=== PATIENT | female | born 1995 | race Caucasian/White ===

== ENCOUNTER 2020-01-31 18:58 | Emergency (ER) | payer BC, SELFPAY ==
[2020-01-31 19:01] VITALS: BP 128/78; PULSE 76; RESP 17; TEMP 36.8; O2SAT 99
[2020-01-31 20:23] VITALS: BP 120/69; PULSE 73
[2020-01-31 20:24] VITALS: BP 122/74; PULSE 71
[2020-01-31 20:25] VITALS: BP 118/71; PULSE 80
--- NOTE | 2020-01-31 20:31 | ED.PREGNANCY ---
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 Also reports some spotting. Reports history of miscarriages which prompted her to be seen. Denies fever, vomiting, dysuria or hematuria. Related Data Home Medications Medication Instructions Recorded Confirmed PNV cmb#95-ferrous fumarate-FA 1 tablet PO 01/31/20 [] Allergies Allergy/AdvReac Type Severity Reaction Status Date / Time pineapple Allergy Mild Unknown Verified 01/31/20 19:13 Review of Systems Review of Systems: Narrative: CONSTITUTIONAL: Denies fever GASTROINTESTINAL: Reports pelvic pain. Denies nausea, vomiting GENITOURINARY: Denies dysuria or hematuria. All systems reviewed & are unremarkable except as noted in HPI and below PMFSH Past Medical History Medical History (Updated 01/31/20 @ 22:29 by Macy Cruz PA-C) No active medical problems Surgical History Surgical History (Updated 01/31/20 @ 20:35 by Macy Cruz PA-C) History of History of tonsillectomy Social History Social History Gender identity (if verbalized by the patient): Female Exam Narrative: Exam Narrative: GENERAL: Well-appearing, well-nourished, and in no acute distress. HEAD: Normocephalic, atraumatic. EYES: EOMI. CHEST: Clear to auscultation. No respiratory distress. No wheezes rales or rhonchi HEART: Regular rate and rhythm. No murmur heard. Normal peripheral pulses. ABDOMEN: Soft, nontender, nondistended, normal active bowel sounds. EXTREMITIES: Normal range of motion. No edema. SKIN: Warm, dry, no rash. NEURO: No focal deficits. Alert and oriented x3. PSYCH: Normal mood and affect PELVIC: Normal external genitalia. Normal appearing cervix. No blood noted in the vaginal vault. Course Consultations Consultation #1: Spoke with Dr. Watt about patient and workup. Patient is to follow up in clinic Date: 01/31/20 Time: 22:25 Vital Signs Vital signs: Vital Signs Temperature 98.3 F 01/31/20 19:01 Pulse Rate 76 01/31/20 19:01 Respiratory Rate 17 01/31/20 19:01 Blood Pressure 128/78 01/31/20 19:01 Pulse Oximetry 99 01/31/20 19:01 Temperature 98.3 F 01/31/20 19:01 Pulse Rate 80 01/31/20 20:25 Respiratory Rate 17 01/31/20 19:01 Blood Pressure 118/71 01/31/20 20:25 Pulse Oximetry 99 01/31/20 19:01 Procedures Other Procedure Procedure 1: Other Procedure: Bedside US performed by myself with pole with positive cardiac motion MDM - OB/Uterine Contractions MDM Narrative Medical decision making narrative: Patient presents to the emergency department for pelvic cramping and spotting that started this afternoon. Patient is 10 weeks . Reports she has had 2 normal ultrasounds this . CBC with mild leukocytosis to 12.8. Metabolic panel without concerning findings. UA without evidence of infection. I did perform a bedside ultrasound with positive pole with cardiac motion. Spoke with Dr. Watt, on-call for Dr. Ocampo about work-up. Patient is to follow-up in clinic. Patient is stable and felt appropriate for further outpatient evaluation. She was given warnings to return to the ER Lab Data Attestation: I reviewed the patient's lab results. Result diagrams: 01/31/20 20:25 01/31/20 20:25 Labs: Lab Results 01/31/20 01/31/20 01/31/20 Range/Units 20:25 20:25 20:25 WBC 12.8 H (4.5-10.0) K/mm3 RBC 4.37 (4.2-5.4) M/mm3 Hgb 12.9 (12.0-15.0) g/dL Hct 38.9 (37.0-47.0) % MCV 89.0 (80-100) fl MCH 29.5 (26-34) pg MCHC 33.2 (32-36) g/dl RDW 12.7 (11.5-14.5) % Plt Count 391 H (150-375) k/mm3 MPV 9.1 (7.4-10.
[2020-01-31 20:34] LABS: Basophils Percent Auto 0.3 % (0.2-1.2); Eosinophils Absolute Auto 0.2 K/mm3 (0-0.3); Eosinophils Percent Auto 1.8 % (0-4.4); Hematocrit 38.9 % (37.0-47.0); Hemoglobin 12.9 g/dL (12.0-15.0); Immature Granulocyte Absolute 0.05 K/mm3 (0.00-0.031); Immature Granulocyte Percent A 0.4 % (0-0.5); Lymphocytes Percent Auto 25.8 % (18.3-44.2); Mean Corpuscular HGB Conc 33.2 g/dl (32-36); Mean Corpuscular Hemoglobin 29.5 pg (26-34); Mean Platelet Volume 9.1 fl (7.4-10.4); Monocytes Absolute Auto 0.8 K/mm3 (0.1-0.6); Monocytes Percent Auto 6.3 % (2.6-8.5); Neutrophils Absolute Auto 8.4 K/mm3 (1.3-6.7); Neutrophils Percent Auto 65.4 % (45.5-73.1); Platelet Count Result 391 k/mm3 (150-375); Red Blood Count 4.37 M/mm3 (4.2-5.4); Red Cell Distribution Width 12.7 % (11.5-14.5); White Blood Count 12.8 K/mm3 (4.5-10.0)
[2020-01-31 20:39] LABS: Add Urine Microscopic? YES; Appearance Urine Clear (Clear); Bacteria Urine Trace /hpf; Bilirubin Urine Negative (Negative); Blood Urine 1+ (Negative); Color Urine Straw (Yellow); Glucose Urine UA Negative (Negative); Ketones Urine Negative (Negative); Leukocyte Esterase Ur Negative LEU/UL (Negative); Mucus Urine Rare /lpf; Nitrate Urine Negative (Negative); Protein Urine Negative (Negative); Specific Grav Ur 1.014 (1.001-1.035); Squamous Epithelial Cell Urine Occasional /hpf (Few); Urobilinogen Urine Negative mg/dL (<2.0); WBC Urine 0-3 /hpf
[2020-01-31 20:44] LABS: Prothrombin Time 12.9 Seconds (11.1-14.7)
[2020-01-31 20:45] LABS: Blood Urea Nitrogen 10 mg/dL (7-17); Calcium 8.8 mg/dL (8.4-10.2); Carbon Dioxide 24 mmol/L (22-30); Chloride 101 mmol/L (98-107); Estimated CRCL calculation 176 ml/min; Estimated Glomerular Filt Rate > 60; Glucose 84 mg/dL (65-105); Partial Thromboplastin Time 26.5 SECONDS (22.3-36.8); Potassium 3.8 mmol/L (3.4-5.0); Sodium 134 mmol/L (137-145)
[2020-01-31 22:47] VITALS: BP 114/71; PULSE 86; RESP 20; O2SAT 100
== END 2020-01-31 22:48 | disposition home or self-care (01) ==
PROVIDERS: Physician Assistant; Emergency Provider Emergency Medicine
DX: O26.851 Spotting complicating pregnancy, first trimester (principal); Z3A.10 10 weeks gestation of pregnancy
CPT/HCPCS: 36415; 80048; 81001; 81025; 84702; 85025; 85610; 85730; 96365; 99284; J0131

== ENCOUNTER 2020-02-01 11:11 | Outpatient (RCR) | payer BC, SELFPAY | END 2020-05-01 23:59 | disposition home or self-care (01) | LOC: ANHLAB 11:11 | PROVIDERS: Visit Provider Obstetrics & Gynecology | DX: Z29.13 Encounter for prophylactic Rho(D) immune globulin (principal); O36.0130 Maternal care for anti-D [Rh] antibodies, third trimester, not applicable or unspecified; Z3A.00 Weeks of gestation of pregnancy not specified | CPT/HCPCS: 36415; 85461 ==

== ENCOUNTER 2020-03-28 23:49 | Emergency (ER) | payer BC, SELFPAY ==
[2020-03-28 23:55] VITALS: BP 112/58; PULSE 72; RESP 17; TEMP 35.8; O2SAT 100
--- NOTE | 2020-03-29 02:17 | ED.GENADULT ---
HPI - General Adult General Chief complaint: Unspecified Stated complaint: 18 WKS PREG, LEGS LOOK BRUISED Time Seen by Provider: 03/29/20 02:09 History of Present Illness HPI narrative: She noted purpulish discoloration of the bilateral buttocks and thighs this evening. Right more than left. Additionally believes that her leg veins are darker and more prominent than usual. She denies any pain or swelling. No trauma. No CP, SOB, light headedness, weakness. She is 18 weeks . Related Data Home Medications Medication Instructions Recorded Confirmed Flinstone Gummies 2 cap/kg PO DAILY 03/29/20 Allergies Allergy/AdvReac Type Severity Reaction Status Date / Time pineapple Allergy Mild Unknown Verified 03/28/20 23:53 Review of Systems Review of Systems: All systems reviewed & are unremarkable except as noted in HPI and below PMFSH Past Medical History Medical History No active medical problems Surgical History Surgical History History of History of tonsillectomy Social History Social History Gender identity (if verbalized by the patient): Female Exam Const: General: healthy appearing, no acute distress and alert Orientation/consciousness: patient oriented x3 HENMT: Head: normal to inspection Resp: Effort & Inspection: normal respiratory effort Auscultation: clear to auscultation bilaterally Cardio: Rate: regular rate Rhythm: regular rhythm GI: GI Palp: No Tenderness to palpation present (GI) Other: gravid Skin: Other: Darkening of the skin othe the buttocks and proximal thighs. Appears similar to dependent bruising. No tenderness. Dark superfical veins noted, not firm or tender. Neuro: General: patient oriented x3, moves all extremities, no focal motor deficits and CN's II-XI intact bilaterally Speech: normal speech Gait exam (Neuro): Normal gait present Extrem: General: no edema Other: No tenderness Psych: Appearance: grossly normal and well kempt Mental Status: mental status grossly normal Affect: normal affect Course Vital Signs Vital signs: Vital Signs Temperature 35.8 C L 03/28/20 23:55 Pulse Rate 72 03/28/20 23:55 Respiratory Rate 17 03/28/20 23:55 Blood Pressure 112/58 L 03/28/20 23:55 Pulse Oximetry 100 03/28/20 23:55 Temperature 35.8 C L 03/28/20 23:55 Pulse Rate 74 03/29/20 04:45 Respiratory Rate 16 03/29/20 04:45 Blood Pressure 115/63 03/29/20 04:45 Pulse Oximetry 100 03/29/20 04:45 Procedures Other Procedure Procedure 1: Other Procedure: Bedside Ultrasound Bilateral femoral and popliteal veins fully compressible throughout visualized course. No DVT IUP seen. Grossly normal for reported age. Reassuring movement FHR 150 Medical Decision Making MDM Narrative Medical decision making narrative: Exam appears similar to bruising. No DVT on US. No worrisome symptoms. Case discussed with her OB. They will see her in clinic tomorrow. Medical Records Medical records reviewed: Yes I reviewed the patient's medical records. Vital Signs Vital Signs: Vital Signs Temperature 35.8 C L 03/28/20 23:55 Pulse Rate 72 03/28/20 23:55 Respiratory Rate 17 03/28/20 23:55 Blood Pressure 112/58 L 03/28/20 23:55 Pulse Oximetry 100 03/28/20 23:55 Temperature 35.8 C L 03/28/20 23:55 Pulse Rate 74 03/29/20 04:45 Respiratory Rate 16 03/29/20 04:45 Blood Pressure 115/63 03/29/20 04:45 Pulse Oximetry 100 03/29/20 04:45 Discharge Plan Discharge Clinical Impression: Discoloration of skin Patient Disposition: Home, Self-Care Condition: Stable Prescriptions: No Action Flinstone Gummies 2 cap/kg PO DAILY RF: 0 Follow-up/Referrals: Lakhwinder Ocampo MD [Primary Care Provider] - 03/29/20 Discharge Date/
[2020-03-29 04:45] VITALS: BP 115/63; PULSE 74; RESP 16; O2SAT 100
== END 2020-03-29 04:45 | disposition home or self-care (01) ==
PROVIDERS: Emergency Provider Emergency Medicine; PCP Obstetrics & Gynecology
DX: O26.892 Other specified pregnancy related conditions, second trimester (principal); R23.8 Other skin changes; Z3A.18 18 weeks gestation of pregnancy
CPT/HCPCS: 99281

== ENCOUNTER 2020-07-04 17:23 | Outpatient (CLI) | payer BC, SELFPAY ==
--- NOTE | ~2020-07-04 | US_ITS ---
EXAMINATION: US venous doppler [facility] DATE: 07/04/2020 17:47 INDICATION: Left lower extremity pain TECHNIQUE: Tolentino scale images with and without compression and Doppler images of the left upper extrem ity veins were obtained. COMPARISON: None. FINDINGS: The left internal jugular vein, subclavian vein, axillary vein, brachial veins, basilic vein, cephali c vein, radial vein, and ulnar vein are patent.] IMPRESSION: 1. Patent left upper extremity veins. No evidence of deep venous thrombosis. Reviewed, dictated and finalized at location A. COVERING TEXTURER
== END 2020-07-04 17:24 | disposition home or self-care (01) ==
PROVIDERS: PCP Obstetrics & Gynecology; Visit Provider Advanced Practice Midwife
DX: M79.605 Pain in left leg (principal)
CPT/HCPCS: 93971

== ENCOUNTER 2020-08-23 10:41 | Outpatient (CLI) | payer BC, SELFPAY ==
[2020-08-23 11:07] LABS: Hematocrit 35.3 % (37.0-47.0); Hemoglobin 10.9 g/dL (12.0-15.0); Mean Corpuscular HGB Conc 30.9 g/dl (32-36); Mean Corpuscular Hemoglobin 26.8 pg (26-34); Mean Corpuscular Volume 86.9 fl (80-100); Mean Platelet Volume 9.7 fl (7.4-10.4); Platelet Count Result 290 k/mm3 (150-375); Red Blood Count 4.06 M/mm3 (4.2-5.4); Red Cell Distribution Width 14.2 % (11.5-14.5)
[2020-08-24 12:09] LABS: Rapid Plasma Reagin Non-Reactive (NonReactive)
== END 2020-08-23 10:42 | disposition home or self-care (01) ==
LOC: ANHLAB 10:43
PROVIDERS: Visit Provider Obstetrics & Gynecology
DX: Z34.93 Encounter for supervision of normal pregnancy, unspecified, third trimester (principal); Z3A.00 Weeks of gestation of pregnancy not specified
CPT/HCPCS: 36415; 85027; 86592; 86850; 86900; 86901

== ENCOUNTER 2020-08-24 07:07 | Inpatient (IN) | payer BC, SELFPAY ==
[2020-08-24] VITALS (61 sets, daily range): BP systolic 103–137; BP diastolic 51–99; PULSE 64–141; RESP 14–18; TEMP 36.2–37.2; O2SAT 95–100; BMI 38.0
--- NOTE | 2020-08-24 07:25 | WPDHPUPDATE1 ---
History and Physical Update Update Date/Time: 08/24/20 07:25 History and Physical has been reviewed, including an updated exam of the patient. There are NO changes in the patient's condition. Risks, benefits, and alternatives have been discussed and questions answered. Patient agrees to proceed with procedure.
--- NOTE | 2020-08-24 07:25 | PM.IMHP ---
H&P: HPI History of Present Illness Date/Time: 08/24/20 07:25 Chief Complaint: term gest. Narrative: Dominique Goode is a 25 year old female Multipara at term with previous . We have agreed to proceed with repeat delivery. She understands the risk. She denies any nausea, vomiting, fever, chills. She denies any contractions, loss of fluid, vaginal bleeding. She denies any headache or blurry vision. She denies any chest pain or shortness of breath. Review of Systems Constitutional: Constitutional: Reports no additional constitutional complaints, Denies fatigue, Denies headache(s), Denies lethargy and Denies weakness Eyes: Eyes: Reports no additional eye complaints, Denies blurry vision and Denies photophobia ENT: Reports as per HPI, Denies headache(s) and Denies neck pain Cardiovascular: Cardiovascular: Denies chest pain, Denies diaphoresis, Denies leg edema, Denies palpitations and Denies dyspnea Respiratory: Respiratory: Denies hemoptysis, Denies dyspnea and Denies wheezing Gastrointestinal: Gastrointestinal: Denies abdominal pain, Denies melena, Denies bloating, Denies hematochezia, Denies nausea and Denies vomiting Genitourinary: Genitourinary: Reports no additional female genitourinary complaints Musculoskeletal: Musculoskeletal: Denies joint swelling, Denies neck pain, Denies numbness and Denies stiffness Neurologic: Denies Abnormal speech present, Denies confusion, Denies headache(s), Denies numbness and Denies weakness Psychiatric: Psychiatric: Denies anxiety, Denies confusion, Denies depression, Denies homicidal ideation and Denies suicidal ideation Endocrine: Endocrine: Denies fatigue and Denies palpitations Allergic/Immunologic: Allergic/Immunologic: Denies wheezing PMF Past Medical History Medical History (Updated 08/24/20 @ 07:26 by Lakhwinder Ocampo MD) No active medical problems Surgical History Surgical History (Updated 08/24/20 @ 07:26 by Lakhwinder Ocampo MD) History of History of tonsillectomy Family History Family History (Updated 08/20/20 @ 14:31 by Prakash Birmingham RN) Other No pertinent family history Social History Social History Substance use: never Gender identity (if verbalized by the patient): Female Spiritual care concerns: No Meds Home Medications and Allergies Home Medications Medication Instructions Recorded Confirmed Type pediatric multivitamin no.49 tablet PO 08/20/20 History [Flintstones Gummies] Allergies Allergy/AdvReac Type Severity Reaction Status Date / Time pineapple Allergy Mild Unknown Verified 03/28/20 23:53 Exam Const: General: healthy appearing, comfortable and no acute distress; No confusion Orientation/consciousness: No confusion Eyes: Direct Ophthalmoscopy: No photophobia Resp: Auscultation: clear to auscultation bilaterally, no rales, no rhonchi and no wheezes Cardio: Rate: regular rate Heart sounds: no click, no murmurs and no rubs GI: Inspection: non-distended GI Palp: No abdominal tenderness Auscultation: normal bowel sounds Neuro: General: No confusion Speech: No Abnormal speech present Extrem: General: normal to inspection, no pedal edema and no calf tenderness Assessment and Plan Assessment and plan (1) Term : Code(s): Z34.90 - Encounter for supervision of normal , unspecified, unspecified trimester Status: Acute (2) History of : Code(s): Z98.891 - History of uterine scar from previous surgery Status: Acute Assessment and Plan: 25-year-old multipara at term with previous delivery. We have agreed to perform repeat delivery. She understands the risks, benefits, and alternatives. She has completed the informed consent process is ready to proceed.
--- NOTE | 2020-08-24 07:27 | LDADM ---
This patient, Dominique Goode, was admitted to Labor/Delivery/Recovery 120 on 08/24/20 at 07:07. Plans for repeat section, pain management and were discussed with patient. Patient/family oriented to hospital policies and general routines including ID bracelet, bed and alarms, visiting hours, pain management, procedures, bathroom and other care routines, personal items, smoking policy, room service/diet and guest tray routines, infant security routines, and visiting hours. Patient/Family are encouraged to report perceived risks to care and to ask questions if they do not understand what they are told or what they should do. See OBIX for further documentation.
[2020-08-24] MEDS: LACTATED RINGERS 1,000 ML 125 ML IV CONT (07:37)
--- NOTE | 2020-08-24 07:37 | P.PNAN_ITS ---
Anes - Initial Pre Proc Eval Procedure: Operation Date: 08/24/20 09:00 Proposed Procedures p Repeat Section - Lakhwinder Ocampo MD Date/Time: 08/24/20 07:37 Surgeon: Lakhwinder Ocampo MD Pre Op Diagnosis: C Section Patient Data Age: 25 Gender: F Height: 5 ft 7 in Weight: 110 kg Last Vital Signs Pulse 108 H 08/24/20 07:31 BP 131/84 08/24/20 07:31 Allergies Allergy/AdvReac Type Severity Reaction Status Date / Time pineapple Allergy Mild Unknown Verified 03/28/20 23:53 Home Medications Medication Instructions Recorded Confirmed Type pediatric multivitamin no.49 2 tablet PO DAILY 08/20/20 08/24/20 History [Flintstonmichael Gummies] Patient hx anesthesia problems: none Family hx anesthesia problems: none [facility] Past Medical History Medical History (Updated 08/24/20 @ 07:37 by Michael Doe MD) No active medical problems Obesity Surgical History Surgical History History of History of tonsillectomy Family History Family History Other No pertinent family history Social History Social History Smoking status: Former smoker Tobacco type: e-cigarettes/vaping Second hand tobacco smoke exposure: No Substance use: never Gender identity (if verbalized by the patient): Female Spiritual care concerns: No Anes - Eval Final PreProcedure Day of Procedure 08/24/20 07:37 Patient weight: obese Heart: regular rate and rhythm Lungs: clear to auscultation Airway: Mallampati scale class II Neurological: alert and oriented Last oral intake: >/= 8 hours ASA classification: II Emergent: no Anesthetic plan: proceed Anesthesia type and monitoring: regional spinal and standard monitoring Informed Consent: The patient's anesthetic plan and its attendant risks and benefits were discussed with the patient/family/POA. Questions were solicited and answers provided to the satisfaction of the patient/family/POA.
[2020-08-24] MEDS: ceFAZolin 2 GM/D5W 50 ML 2 GM/50 ML BAG IVPB (07:50)
--- NOTE | 2020-08-24 08:47 | P.OP_ITS ---
Procedure Note - Detailed Date of procedure: 08/24/20 Pre-op diagnosis: Previous C Section Breech Post-op diagnosis: same Procedure performed: low-transverse delivery Description of procedure: The patient was taken the operating room. She was prepped and draped in the dorsal supine position with leftward tilt after induction of spinal anesthetic. When anesthesia was found to be adequate a low- transverse skin incision was made and carried down to the level the fascia with the knife. The fascial incision was made at the midline with a scalpel. The fascial incision was extended laterally with Boss scissors. The fascia was tented upward superior and inferior with Adilene clamps. The rectus muscles were dissected off bluntly. The rectus muscles at the midline. The preperitoneal fat was dissected bluntly at the superior aspect of the separate the rectus muscles. The peritoneal cavity was entered bluntly in the same area. The peritoneal incision was extended superior and inferior with good visualization of bladder. Bladder blade was inserted. A low-transverse incision was made on the uterus with the scalpel. It was carried down the level of the amniotic cavity with a knife. The amniotic cavity bluntly. The uterine incision was made laterally with blunt traction. The infant was delivered. The cord was clamped and cut. The was handed off to waiting pediatric staff. Cord bloods were obtained. The placenta was removed manually. The uterus was exteriorized. Uterus cleared of all clots and debris. Uterus closed in 0 Vicryl in a running locked fashion. An imbricating layer of 0 Vicryl was also placed on the to bolster the closure. The uterus was returned to the abdomen. The gutters were cleared of all clots and debris. The fascia was closed 0 Vicryl in a running fashion. Subcutaneous tissue was irrigated and bleeding areas were cauterized. The skin was closed with subcuticular absorbable willi. The incision was covered with derma nicholson. The patient tolerated the procedure well. She was taken recovery room stable condition. Sponge, lap, needle counts were correct x2. Anesthesia: spinal Surgeon: Lakhwinder Ocampo MD Estimated blood loss (mL): 325 Drains: No Packing: No Pathology: none sent Complications: No immediate complications Condition: stable Disposition: floor Findings: Normal maternal anatomy. Average size infant with normal Apgars.
[2020-08-24] MEDS: OXYTOCIN 30 UNITS/NS 500 ML 30 UNITS/500 ML BAG 125 UNITS IV CONT (09:14)
[2020-08-24] MEDS: KETOROLAC 30 MG/ML VIAL (*BKC) IV PUSH ×2 (10:58→16:22)
--- NOTE | 2020-08-24 13:45 | OBPPTRN ---
Patient transferred to post room # 279 via ( stretcher ). Support person present. Oriented to unit, room, information board, rooming in, admission packet and security measures. Patient verbalizes understanding.
[2020-08-24] MEDS: SIMETHICONE 80 MG TAB.CHEW PO (16:23)
[2020-08-24] MEDS: HYDROcodone/acetaminophen (*CRX) 5-325 MG TABLET 1 TAB PO ×2 (16:30→22:10)
[2020-08-24] MEDS: IBUPROFEN 600 MG TABLET PO (22:10)
[2020-08-25 03:30] VITALS: BP 116/63; PULSE 78; RESP 16; TEMP 36.5
[2020-08-25] MEDS: IBUPROFEN 600 MG TABLET PO ×4 (03:30→19:20)
[2020-08-25] MEDS: HYDROcodone/acetaminophen (*CRX) 5-325 MG TABLET 1 TAB PO (03:30)
[2020-08-25 04:59] LABS: Basophils Absolute Auto 0.1 K/mm3 (0.0-0.1); Basophils Percent Auto 0.5 % (0.2-1.2); Eosinophils Absolute Auto 0.1 K/mm3 (0-0.3); Eosinophils Percent Auto 0.9 % (0-4.4); Hematocrit 33.5 % (37.0-47.0); Hemoglobin 10.4 g/dL (12.0-15.0); Immature Granulocyte Absolute 0.08 K/mm3 (0.00-0.031); Immature Granulocyte Percent A 0.5 % (0-0.5); Lymphocytes Absolute Auto 3.37 K/mm3 (0.9-3.2); Lymphocytes Percent Auto 21.7 % (18.3-44.2); Mean Corpuscular Hemoglobin 27.4 pg (26-34); Mean Corpuscular Volume 88.2 fl (80-100); Mean Platelet Volume 10.1 fl (7.4-10.4); Monocytes Absolute Auto 1.6 K/mm3 (0.1-0.6); Monocytes Percent Auto 10.5 % (2.6-8.5); Neutrophils Absolute Auto 10.2 K/mm3 (1.3-6.7); Neutrophils Percent Auto 65.9 % (45.5-73.1); Platelet Count Result 305 k/mm3 (150-375); Red Cell Distribution Width 14.5 % (11.5-14.5); White Blood Count 15.5 K/mm3 (4.5-10.0)
--- NOTE | 2020-08-25 07:44 | PM.OBPNVD ---
OB - PN: Subj Subjective Date/time seen: 08/25/20 07:44 Patient comments: no complaints, pain well controlled, tolerating diet and flatus present OB - PN: Obj Data Labs CBC & Chem 7: 08/25/20 03:34 Labs: Laboratory Results - last 24 hr 08/25/20 03:34 WBC 15.5 H RBC 3.80 L Hgb 10.4 L Hct 33.5 L MCV 88.2 MCH 27.4 MCHC 31.0 L RDW 14.5 Plt Count 305 MPV 10.1 Immature Gran % (Auto) 0.5 Neut % (Auto) 65.9 Lymph % (Auto) 21.7 [place] % (Auto) 10.5 H Eos % (Auto) 0.9 Baso % (Auto) 0.5 Lymph # (Auto) 3.37 H [place] # (Auto) 1.6 H Eos # (Auto) 0.1 Baso # (Auto) 0.1 Abs Immat Gran (auto) 0.08 H Absolute Neuts (auto) 10.2 H Absolute Nucleated RBC 0.0 Nucleated RBC % 0.0 OB - PN A/P Plan day: 1 Comments: Post Op LTCS - no problems, routine recovery Time Spent With Patient Time: Total time spent is greater than 50% in coordination of care (as documented) at patient's floor/unit and/or counseling patient: Exam Const: General: cooperative, healthy appearing, comfortable and no acute distress Resp: Auscultation: no crackles, no rales, no rhonchi and no wheezes Cardio: Rhythm: regular rhythm Heart sounds: no click and no murmurs GI: Inspection: non-distended Auscultation: normal bowel sounds Extrem: General: normal to inspection, no pedal edema and no calf tenderness
[2020-08-25 07:45] VITALS: BP 128/65; PULSE 82; RESP 18; TEMP 37.2; O2SAT 98
[2020-08-25] MEDS: SIMETHICONE 80 MG TAB.CHEW PO ×2 (08:17→14:16)
[2020-08-25] MEDS: DOCUSATE SODIUM 100 MG CAPSULE PO ×2 (08:18→19:20)
[2020-08-25] MEDS: HYDROcodone/acetaminophen (*CRX) 10-325 MG TABLET 1 TAB PO ×4 (08:18→23:05)
--- NOTE | 2020-08-25 09:25 | WPDANLDPN2 ---
Anes-Prog Note L&D Date/Time: 08/25/20 09:25 Comfortable throughout: section Neuraxial method: spinal Epidural/Spinal procedure site: clean & non-tender Neuro status: Neuro function grossly intact. Cardiovascular status: normal Respiratory status: normal Airway patency: baseline Mental status: baseline Post-Op hydration status: normal Vital Signs: Last Vital Signs Temp 36.5 C 08/25/20 03:30 Pulse 78 08/25/20 03:30 Resp 16 08/25/20 03:30 BP 116/63 08/25/20 03:30 Pulse Ox 97 08/24/20 15:00 Pain score (VAS): 4 I/O: Intake & Output 08/24/20 08/25/20 08/25/20 23:59 07:59 15:59 Intake Total 1600 2000 Output Total 2650 1500 Balance -1050 500 Post-procedural complaints: none and nausea Patient feedback: Patient satisfied with anesthetic care.
--- NOTE | 2020-08-25 09:26 | WPDANLDNPN2 ---
Anes-Prog Note L&D-Neuraxial Date/Time: 08/25/20 09:26 Neuraxial medications: intrathecal PF morphine Opiod-related complaints: none Patient feedback: Patient satisfied with post-operative pain management.
[2020-08-25] MEDS: TETANUS,DIPHTHERIA,AC PERTUSSIS ADULT (0.5 ML) BOOSTRIX IM (09:31)
[2020-08-25 19:20] VITALS: BP 128/80; PULSE 80; RESP 16; TEMP 36.8
[2020-08-26] MEDS: IBUPROFEN 600 MG TABLET PO ×2 (02:15→08:02)
[2020-08-26] MEDS: HYDROcodone/acetaminophen (*CRX) 10-325 MG TABLET 1 TAB PO ×3 (02:15→08:02)
--- NOTE | 2020-08-26 07:32 | PM.OBPNVD ---
OB - PN: Subj Subjective Date/time seen: 08/26/20 07:32 Patient comments: no complaints baby status: doing well OB - PN: Obj Data Labs CBC & Chem 7: 08/25/20 03:34 OB - PN A/P Plan day: 2 Plan: routine care and discharge home Time Spent With Patient Time: Total time spent is greater than 50% in coordination of care (as documented) at patient's floor/unit and/or counseling patient: Review of Systems Review of Systems: All systems reviewed & are unremarkable except as noted in HPI and below Exam Const: General: cooperative, healthy appearing and comfortable Psych: Affect: normal affect Attitude: cooperative Thought process: Normal thought process present Thought content: Yes Normal thought content present Insight: Good insight present (Psych) Judgement: Good judgement present (Psych)
--- NOTE | 2020-08-26 07:35 | PM.OBDSVD ---
DS: Admitting Diagnosis Admitting Diagnosis Admitting Diagnosis: Repeat section OB - DS: Summary OB Procedures : None OB Procedures Intrapartum: OB Procedures: : None Peripartum Data Procedures: Procedures Operation Date: 08/24/20 09:00 Actual Procedures Side Surgeon p Repeat Section Lakhwinder Ocampo MD Time Spent with Patient Time attestation: Total time spent providing and/or coordinating discharge services: Discharge Plan Discharge Attending physician on discharge: Lakhwinder Ocampo Discharging Clinician: Shayna Henry Patient Disposition: Home, Self-Care Activity: pelvic rest Diet: regular Patient Instructions: Antibiotic Form, (DC) Stand Alone Forms: General Discharge Information Follow-up/Referrals: Lakhwinder Ocampo MD [Physician] - 1 Week Discharge Medications: New hydrocodone-acetaminophen 5-325 mg Tablet 1 tablet PO Q3H PRN (Reason: Moderate Pain (4-6)) Qty: 20 RF: 0 Continued Flintstones Gummies Tablet,Chewable 2 tablet PO DAILY RF: 0 Date of admission: 08/24/20 07:07 Primary Care Provider: PHYSICIAN,PACKAGE DELIVERY ROOM SERVICE RUNNER Admitting Provider: Lakhwinder Ocampo Attending physician on admission: Lakhwinder Ocampo Condition: Stable
[2020-08-26] MEDS: DOCUSATE SODIUM 100 MG CAPSULE PO (08:02)
[2020-08-26 08:15] VITALS: PULSE 80; RESP 16; O2SAT 98
[2020-08-26 08:25] VITALS: BP 124/77; PULSE 77; RESP 18; TEMP 36.6; O2SAT 99
--- NOTE | 2020-08-26 10:02 | PC.NURSE ---
Patient was given the opportunity to view the discharge video Mother & Baby Care, The First Two Weeks and to ask questions. Patient declined viewing the video and has been given the mother/baby guide for home reference.
[2020-08-27 10:48] VITALS: BP 125/72; PULSE 91; RESP 20; TEMP 36.9; O2SAT 99
== END 2020-08-26 12:50 | disposition home or self-care (01) | DRG 788 ==
LOC: ANHLDR 08:48 → ANHOB2 11:16
PROVIDERS: Admitting Provider Obstetrics & Gynecology; Visit Provider Obstetrics & Gynecology
PROC: 10D00Z1 Extraction of Products of Conception, Low, Open Approach (ICD-10-PCS; CPT 59514; principal; 2020-08-24 09:00)
DX: O34.211 Maternal care for low transverse scar from previous cesarean delivery (principal); Z3A.40 40 weeks gestation of pregnancy; Z37.0 Single live birth
CPT/HCPCS: 36415; 85025; 90715; A9270; J0131; J0690; J1885; J2274; J2405; J2590; J7120

== ENCOUNTER 2022-12-06 15:00 | Outpatient (CLI) | payer BC, MEDICAID, SELFPAY ==
[2022-12-06 15:32] LABS: Rheumatoid Factor < 12.0 IU/ML (<12)
[2022-12-06 15:35] LABS: CRP 0.5 mg/dL (<1.0)
[2022-12-06 15:48] LABS: Erythrocyte Sedimentation Rate 18 mm/hr (0-20)
== END 2022-12-06 15:01 | disposition home or self-care (01) ==
LOC: ANHLAB 15:03
PROVIDERS: Visit Provider Podiatrist Foot & Ankle Surgery
DX: M79.672 Pain in left foot (principal)
CPT/HCPCS: 36415; 85652; 86038; 86140; 86430